=== PATIENT | female | born 1960 | race Caucasian/White ===

== ENCOUNTER 2019-11-07 09:32 | Observation (INO) ==
[2019-11-07] MEDS ORDERED: 0.9 % Sodium Chloride 250 ML IVC ONE (09:47)
[2019-11-07 10:21] LABS: Basophils # 0.1 K/mcL (0.0-0.2); Basophils % 1.2 %; Eosinophils # 0.4 K/mcL (0.0-0.6); Eosinophils % 5.4 %; Hematocrit 45.2 % (35.3-44.9); Hemoglobin 16.3 g/dL (11.5-15.4); Immature Granulocytes % 0.3 % (0-4); Lymphocytes % 28.1 %; Mean Corpuscular HGB Conc 36.1 g/dL (31.6-35.5); Mean Corpuscular Hemoglobin 31.8 pg (28.0-33.3); Mean Corpuscular Volume 88.1 fL (83.0-100.0); Mean Platelet Volume 10.3 fL (9.4-12.4); Monocytes # 0.7 K/mcL (0.0-1.3); Monocytes % 9.4 %; Platelet Count 221 K/mcL (140-400); Red Blood Count 5.13 M/mcL (3.82-4.97); Red Cell Distribution Width 12.3 % (11.5-14.5); Segmented Neutrophils % 55.6 %; White Blood Count 7.2 K/mcL (4.3-11.1)
[2019-11-07 10:44] LABS: Alanine Aminotransferase 17 Units/L (7-52); Albumin 4.9 g/dL (3.5-5.7); Albumin/Globulin Ratio 1.8 (1.1-2.2); Alkaline Phosphatase 127 Units/L (34-104); Aspartate Amino Transferase 21 Units/L (13-39); BUN/Creatinine Ratio 17 (6-26); Bilirubin,Total 0.5 mg/dL (0.3-1.0); Blood Urea Nitrogen 12 mg/dL (6-20); Calcium 9.8 mg/dL (8.6-10.3); Carbon Dioxide 25 mEq/L (23-29); Chloride 102 mEq/L (98-107); Globulin 2.8 g/dL (2.4-3.5); Glucose 115 mg/dL (70-105); Osmolality,Calculated 287 (280-300); Potassium 3.7 mEq/L (3.5-5.1); Sodium 138 mEq/L (136-145); Total Protein 7.7 g/dL (6.4-8.9); Troponin I < 0.03 ng/mL (< 0.04); eGFR For African Americans > 60 (> 60); eGFR For Non-African Americans > 60 (> 60)
[2019-11-07 11:22] LABS: Activated Partial Thrombo Time 37.4 Seconds (26.0-36.0); INR 1.2; Prothrombin Time 13.3 Seconds (9.4-12.1)
[2019-11-07] MEDS ORDERED: DilTIAZem 50 MG in 0.9 % Sodium Chloride 40 ML IVC SCH (11:30)
[2019-11-07] MEDS ORDERED: Naloxone 0.4 MG/ML INJ IVP PRN (12:15)
[2019-11-07] MEDS ORDERED: NON-FORMULARY MEDICATION 1 EACH EACH (Rizatriptan Benzoate [Maxalt] 10 MG) PO PRN (14:19)
[2019-11-07] MEDS ORDERED: Fluticasone Propionate Nasal 50 MCG/SPRAY BOTTLE NS PRN (14:19)
[2019-11-07] MEDS ORDERED: SUMAtriptan succinate 50 MG TABLET PO PRN (15:31)
[2019-11-07] MEDS ORDERED: SUMAtriptan succinate 50 MG TABLET PO ONE (15:31)
[2019-11-07] MEDS: Apixaban 5 MG TABLET PO SCH (20:44)
[2019-11-08 05:25] LABS: Basophils # 0.1 K/mcL (0.0-0.2); Basophils % 1.1 %; Eosinophils # 0.4 K/mcL (0.0-0.6); Eosinophils % 5.6 %; Hematocrit 44.6 % (35.3-44.9); Hemoglobin 15.3 g/dL (11.5-15.4); Immature Granulocytes % 0.3 % (0-4); Lymphocytes # 2.1 K/mcL (0.6-4.6); Mean Corpuscular HGB Conc 34.3 g/dL (31.6-35.5); Mean Corpuscular Hemoglobin 31.7 pg (28.0-33.3); Mean Corpuscular Volume 92.5 fL (83.0-100.0); Mean Platelet Volume 10.2 fL (9.4-12.4); Monocytes # 0.9 K/mcL (0.0-1.3); Monocytes % 10.9 %; Neutrophils # 4.4 K/mcL (1.6-8.9); Platelet Count 209 K/mcL (140-400); Red Blood Count 4.82 M/mcL (3.82-4.97); Red Cell Distribution Width 12.7 % (11.5-14.5); Segmented Neutrophils % 56.1 %; White Blood Count 7.9 K/mcL (4.3-11.1)
[2019-11-08 05:51] LABS: Blood Urea Nitrogen 17 mg/dL (6-20); Carbon Dioxide 26 mEq/L (23-29); Chloride 103 mEq/L (98-107); Potassium 3.9 mEq/L (3.5-5.1); Sodium 139 mEq/L (136-145)
[2019-11-08 05:52] LABS: BUN/Creatinine Ratio 21 (6-26); Calcium 9.3 mg/dL (8.6-10.3); Glucose 106 mg/dL (70-105); Osmolality,Calculated 290 (280-300); eGFR For African Americans > 60 (> 60); eGFR For Non-African Americans > 60 (> 60)
[2019-11-08] MEDS: Apixaban 5 MG TABLET PO SCH (08:44)
[2019-11-08] MEDS ORDERED: DilTIAZem CD (24hr) 180 MG CAP.ER.24H PO SCH ×2 (09:00→11:25)
[2019-11-08] MEDS ORDERED: Lactobacillus 1 EACH CAP.SPRINK PO SCH (09:00)
[2019-11-08] MEDS ORDERED: Loratadine 10 MG TABLET PO SCH (09:00)
[2019-11-08 09:40] LABS: Thyroid Stimulating Hormone 1.254 mcIU/mL (0.340-5.600)
[2019-11-08 11:00] VITALS: BP 118/75
[2019-11-09] MEDS ORDERED: DilTIAZem CD (24hr) 180 MG CAP.ER.24H PO SCH (09:00)
== END 2019-11-08 12:29 | disposition home or self-care (01) ==
LOC: EMEROOARM 09:32 → CDU 09:32 → SUATTDRO 11:53 → CDU 12:43 → 2ANU 18:41
PROVIDERS: ADMIT Internal Medicine; ATTEND Student in an Organized Health Care Education/Training Program

== ENCOUNTER 2019-12-26 06:53 | Observation (INO) ==
[2019-12-26] MEDS ORDERED: 0.9 % Sodium Chloride 1,000 ML IVC ONE (07:35)
[2019-12-26 08:08] LABS: Basophils # 0.1 K/mcL (0.0-0.2); Eosinophils # 0.2 K/mcL (0.0-0.6); Eosinophils % 2.3 %; Hematocrit 46.5 % (35.3-44.9); Hemoglobin 16.4 g/dL (11.5-15.4); Immature Granulocytes % 0.5 % (0-4); Lymphocytes # 1.7 K/mcL (0.6-4.6); Lymphocytes % 17.3 %; Mean Corpuscular HGB Conc 35.3 g/dL (31.6-35.5); Mean Corpuscular Volume 90.6 fL (83.0-100.0); Monocytes # 0.9 K/mcL (0.0-1.3); Monocytes % 8.6 %; Platelet Count 228 K/mcL (140-400); Red Blood Count 5.13 M/mcL (3.82-4.97); Red Cell Distribution Width 12.3 % (11.5-14.5); Segmented Neutrophils % 70.3 %; White Blood Count 9.9 K/mcL (4.3-11.1)
[2019-12-26 08:13] LABS: INR 1.1; Prothrombin Time 12.8 Seconds (9.4-12.1)
[2019-12-26 08:16] LABS: Activated Partial Thrombo Time 39.4 Seconds (26.0-36.0)
[2019-12-26 08:28] LABS: BUN/Creatinine Ratio 19 (6-26); Blood Urea Nitrogen 15 mg/dL (6-20); Calcium 10.4 mg/dL (8.6-10.3); Carbon Dioxide 26 mEq/L (23-29); Chloride 105 mEq/L (98-107); Glucose 135 mg/dL (70-105); Magnesium 2.3 mg/dL (1.6-2.6); Osmolality,Calculated 291 (280-300); Potassium 3.9 mEq/L (3.5-5.1); Sodium 139 mEq/L (136-145); Troponin I < 0.03 ng/mL (< 0.04); eGFR For African Americans > 60 (> 60); eGFR For Non-African Americans > 60 (> 60)
[2019-12-26 08:41] LABS: Thyroid Stimulating Hormone 2.767 mcIU/mL (0.340-5.600)
[2019-12-26] MEDS ORDERED: DilTIAZem CD (24hr) 120 MG CAP.ER.24H PO STA (09:29)
[2019-12-26] MEDS ORDERED: Naloxone 0.4 MG/ML INJ IVP PRN (10:28)
[2019-12-26] MEDS ORDERED: Ondansetron 4 MG/2 ML VIAL IVP PRN (10:28)
[2019-12-26] MEDS ORDERED: NON-FORMULARY MEDICATION 1 EACH EACH (Rizatriptan Benzoate [Maxalt] 10 MG) PO PRN (10:30)
[2019-12-26] MEDS ORDERED: Fluticasone Propionate Nasal 50 MCG/SPRAY BOTTLE NS PRN (10:30)
[2019-12-26] MEDS ORDERED: D5% in Water 1,000 ML IVC PRN (10:42)
[2019-12-26] MEDS ORDERED: Dextrose Gel 15 GM/37.5 ML TUBE PO PRN ×2 (10:42)
[2019-12-26] MEDS ORDERED: *HR* Dextrose 50 % in Water (Syg) 50 ML SYRINGE IVP PRN (10:42)
[2019-12-26] MEDS ORDERED: SUMAtriptan succinate 25 MG TABLET PO PRN (11:01)
[2019-12-26] MEDS ORDERED: DilTIAZem SR (12hr) 60 MG CAP.ER.12H PO ONE (11:14)
[2019-12-26] MEDS: Insulin LISPRO 300 UNITS/3 ML VIAL SQ SCH ×2 (12:16→17:38)
[2019-12-26] MEDS: Apixaban 5 MG TABLET PO SCH (19:57)
[2019-12-26] MEDS ORDERED: Insulin LISPRO 300 UNITS/3 ML VIAL SQ SCH (21:00)
[2019-12-27 05:44] LABS: Basophils # 0.1 K/mcL (0.0-0.2); Eosinophils # 0.3 K/mcL (0.0-0.6); Eosinophils % 3.9 %; Immature Granulocytes % 0.3 % (0-4); Lymphocytes # 2.2 K/mcL (0.6-4.6); Lymphocytes % 31.1 %; Mean Corpuscular HGB Conc 34.5 g/dL (31.6-35.5); Mean Corpuscular Hemoglobin 31.8 pg (28.0-33.3); Mean Corpuscular Volume 92.1 fL (83.0-100.0); Mean Platelet Volume 10.1 fL (9.4-12.4); Monocytes # 0.8 K/mcL (0.0-1.3); Neutrophils # 3.8 K/mcL (1.6-8.9); Platelet Count 201 K/mcL (140-400); Red Blood Count 4.56 M/mcL (3.82-4.97); Red Cell Distribution Width 12.7 % (11.5-14.5); Segmented Neutrophils % 52.7 %; White Blood Count 7.2 K/mcL (4.3-11.1)
[2019-12-27 05:46] LABS: Hemoglobin 14.5 g/dL (11.5-15.4)
[2019-12-27 05:59] LABS: BUN/Creatinine Ratio 20 (6-26); Blood Urea Nitrogen 17 mg/dL (6-20); Calcium 9.6 mg/dL (8.6-10.3); Carbon Dioxide 25 mEq/L (23-29); Chloride 106 mEq/L (98-107); Glucose 95 mg/dL (70-105); Magnesium 2.3 mg/dL (1.6-2.6); Osmolality,Calculated 285 (280-300); Phosphorous 3.6 mg/dL (2.7-4.5); Potassium 3.9 mEq/L (3.5-5.1); Sodium 137 mEq/L (136-145); eGFR For African Americans > 60 (> 60); eGFR For Non-African Americans > 60 (> 60)
[2019-12-27] MEDS ORDERED: Lactobacillus 1 EACH CAP.SPRINK PO SCH (09:00)
[2019-12-27] MEDS ORDERED: Ascorbic Acid 500 MG TABLET PO SCH (09:00)
[2019-12-27] MEDS ORDERED: Loratadine 10 MG TABLET PO SCH (09:00)
[2019-12-27] MEDS ORDERED: Cholecalciferol (D-3) 1,000 UNIT (25MCG) TABLET PO SCH (09:00)
[2019-12-27] MEDS ORDERED: DilTIAZem CD (24hr) 240 MG CAP.ER.24H PO SCH (09:00)
[2019-12-27] MEDS ORDERED: Multivit/Ca/Min/Fe/FA 1 TAB TABLET PO SCH (09:00)
[2019-12-27] MEDS ORDERED: DilTIAZem CD (24hr) 120 MG CAP.ER.24H PO ONE (09:17)
[2019-12-27] MEDS: Insulin LISPRO 300 UNITS/3 ML VIAL SQ SCH ×2 (09:34→12:04)
[2019-12-27] MEDS: Apixaban 5 MG TABLET PO SCH (09:44)
[2019-12-27 11:02] VITALS: BP 115/77
== END 2019-12-27 12:09 | disposition home or self-care (01) ==
LOC: 3BNU 06:53 → EMEROOARM 06:53 → 3BNU 10:39
PROVIDERS: ADMIT Family Medicine; ATTEND Family Medicine